=== PATIENT | female | born 1970 | race Caucasian/White ===

== ENCOUNTER 2017-03-02 11:45 | Emergency (ER) | payer MEDICAID ==
[~2017-03-02] VITALS: Ht 162.6 cm; Wt 77.1 kg
[~2017-03-02 11:45] MED LIST: IBUP800T24 PO; RANI-185 PO; TRAM50TA2 PO
[2017-03-02 12:55] VITALS: BP 134/82
[2017-03-02] MEDS ORDERED: LIDOCAINE 1% HCL (LOCAL ANESTH.) INJ 20ML MDV IJ ONE (13:00)
[2017-03-02] MEDS ORDERED: TETANUS-DIPTH-ACEL PERTUSSIS 0.5ML SYRG IM ONE (13:00)
[2017-03-02] MEDS ORDERED: NEOMYCIN-BACITRACIN-POLYM UNITDOSE PKG TOP OINT TOP ONE (13:00)
== END 2017-03-02 14:21 | disposition home or self-care (01) ==
LOC: ER 11:45
DX: S61.212A Laceration without foreign body of right middle finger without damage to nail, initial encounter (principal); W25.XXXA Contact with sharp glass, initial encounter; Y93.89 Activity, other specified; Y99.8 Other external cause status; Y92.89 Other specified places as the place of occurrence of the external cause
CPT/HCPCS: 12001; 73140; 90715; 99284; J2001

== ENCOUNTER 2024-02-27 21:13 | Emergency (ER) | payer MEDICAID ==
[~2024-02-27] VITALS: Ht 162.6 cm; Wt 87.2 kg
[~2024-02-27 21:13] MED LIST changes: +IBUP-1456 PO; -IBUP800T24 PO
[2024-02-27 21:25] VITALS: BP 143/92; PULSE 73; RESP 18; O2SAT 96
== END 2024-02-27 21:32 | disposition left against medical advice (07) ==
LOC: ER 21:13
DX: R09.81 Nasal congestion (principal); R50.9 Fever, unspecified; Z53.21 Procedure and treatment not carried out due to patient leaving prior to being seen by health care provider